=== PATIENT | female | born 1955 | race Caucasian/White ===

== ENCOUNTER → 2021-02-27 13:17 | Outpatient (CLI) | payer OTHER, SELFPAY ==
--- NOTE | 2021-02-27 13:22 | CT_ITS ---
STUDY: CT ABDOMEN AND PELVIS WITH AND WITHOUT CONTRAST REASON FOR EXAM: Female, 65 years old. UTI. Hematuria. RADIATION DOSAGE (If Supplied By Facility): CTDIvol = ( 9.637 ) mGy, DLP = ( 1436.14 ) mGycm TECHNIQUE: Transaxial images were obtained from the dome of the diaphragm to the symphysis pubis without oral contrast. IV 100mL Isovue-300 was administered. Sagittal and coronal images were reconstructed. Individualized dose optimization techniques were used for this CT. COMPARISON: None. FINDINGS: The visualized lung bases are unremarkable. The visualized portions of the heart are within normal limits. Normal liver. Normal gallbladder and extrahepatic biliary system. Normal spleen. Normal pancreas. Normal bilateral adrenal glands. Normal right kidney. Normal left kidney. There is a small hiatal hernia. Normal small intestine. There are multiple colonic diverticula consistent with diverticulosis. The appendix is visualized and appears normal. There is scattered atherosclerotic calcification of the abdominal aorta, without a demonstrated aneurysm. Normal inferior vena cava. Normal retroperitoneum. Normal urinary bladder. Normal abdominal wall. There are mild degenerative changes of the visualized lumbar spine. CT/CT Abd/Pelvis W/WO Contrast IMPRESSION: Scattered sigmoid diverticula. Electronically Signed: Darwin Downing MD at 15:38 EDT , Service support ,
== END ==
PROVIDERS: PCP Physician Assistant; Referring Provider Urology; Visit Provider Urology
DX: R31.0 Gross hematuria (principal); N39.0 Urinary tract infection, site not specified
CPT/HCPCS: 74178; Q9967

== ENCOUNTER → 2021-03-05 15:37 | Outpatient (CLI) | payer OTHER, SELFPAY ==
--- NOTE | 2021-03-05 | CYSPIN_PTH ---
PATIENT: LELE TORRE LOC: [facility] U#:[id number] AGE/SX: 69/F ROOM: RE03/05/[address]: Dr. Tonya Rios MD : 1955 BED: DIS: SPEC #: [id number] RECD: 03/06/21 08:14 STATUS: JACOB QUYNH #: [id number] OMARI: 03/05/21 00:[address]: Tonya Rios DEPT: CYTOLOGY RECD BY: Rory Fuller ENTERED: 03/06/21 08:15 SP TYPE: CYSPIN FL OTHR DR: VARGAS Shine Tissues: Urine Procedures: Pap Stain (control) Special Stain Group II Cytospin Fluid HEADER OPERATION: Not noted PRE-OP DIAGNOSIS: Gross hematuria TISSUE SUBMITTED: Urine for cytology DIAGNOSIS CYTOLOGY Urine for cytology (cytospin): Negative for malignant cells. AM:robert 03/07/2021 CYTOLOGY STUDY Slides are reviewed. CYTOLOGY GROSS Received is 20 ml of light yellow cloudy fluid labeled with the patient's name and and designated per the requisition as urine. Submitted for cytology preparation. / robert 03/06/2021 TC:5 CPT: 80409
[2021-03-05 16:31] LABS: Cytology, Body Fluid / CSF SEE PATHOLOGY REPORT
== END ==
PROVIDERS: PCP Physician Assistant; Referring Provider Urology; Visit Provider Urology
DX: R31.0 Gross hematuria (principal)
CPT/HCPCS: 88108; 88313

== ENCOUNTER 2021-04-29 06:12 | Day surgery (SDC) | payer OTHER, SELFPAY ==
[2021-04-29 06:40] VITALS: BP 153/72; PULSE 89; RESP 16; TEMP 36.3; O2SAT 100; BMI 22.6
[2021-04-29] MEDS: Lactated Ringers 1,000 ML 100 ML IV (06:53)
[2021-04-29] MEDS: Cefazolin 2 GM in 0.9% Normal Saline 100 ML IV (07:30)
--- NOTE | 2021-04-29 07:35 | PCM.OPRPT ---
Problems Associated Problem List Diagnoses (1) Hematuria, gross: (2) Urinary tract infection: (3) Other urethral stricture, female: Report of Operation Date of Procedure: 04/29/21 Pre-Operative Diagnosis: Gross hematuria, urinary tract infections, urethral stricture Post-Operative Diagnosis: Same Surgery/Procedure Performed:: Urethral dilation, cystoscopy Surgeon: Tonya Rios Type of Anesthesia: General Description of Procedure: The patient is a 65-year-old female with recurrent urinary tract infections and hematuria. An attempt was made at cystoscopy in the office setting and the urethra was too small to accommodate the cystoscope. The decision was made to proceed with urethral dilation and cystoscopy under anesthesia. Informed consent was obtained. The patient was taken to the operating room and placed on the operating room table. Anesthesia monitored the head, neck, airway, IV access and vital signs throughout the case. Once anesthesia was appropriate ministered the patient was placed into dorsal lithotomy position and was prepped and draped in usual sterile fashion. The urethra was then dilated starting with [address] up to 26 [place] with some cracking of the urethral mucosa. There is a slight angle to the urethra indicating a mild prolapse of the bladder neck. At this time the cystoscope easily passed through the urethra into the urinary bladder under direct visualization. the bladder mucosa was visualized in its entirety and found to be mildly trabeculated with no evidence of mass, ulceration, area of erythema or foreign body. The ureteral orifices were found to be in the correct anatomic position along the area of the trigone. At this time the bladder was emptied and the case was terminated. The patient tolerated the procedure well and was awakened and taken to the recovery room in good condition. There were no complications during this procedure. Grafts/Implants Used: none Complications none Admit VTE Documentation VTE Present on Admission: Yes VTE Mechan Device Prophylaxis: SCD's VTE Pharm Prophylaxis ordered?: No Reason prophylaxis not ordered:: Treatment Not Indicated
--- NOTE | 2021-04-29 07:38 | PCM.DC ---
Discharge Instructions Diet Discharge Diet: No restrictions Activity Discharge Activity: Return to Normal Activity May resume sexual activity in: 1-2 weeks Dressing / Incision Call your doctor if your incision/area has: Continuous Slow Oozing, Sudden Increased Bleeding and Foul Smelling Discharge Call your doctor if you observe: Fever of 101 or Higher, Inability to urinate, Inability to have a bowel movement and Uncontrolled pain Follow Up Care Please Follow Up With: Tonya Rios MD When: 1-2 weeks in the office Test Results: Test results from this visit will be discussed in further detail at your follow-up appointment, if applicable. Discharge Plan Admission Attending Provider: Tonya Rios Primary Care Provider: Anabel Olsen Discharge Orders/Prescriptions Prescriptions: New oxycodone-acetaminophen [Percocet] 5-325 mg tablet 1 tab PO Q8H PRN (Reason: pain) 3 Days Qty: 6 RF: 0 phenazopyridine [Pyridium] 200 MG tablet 200 mg PO TID PRN PRN (Reason: Bladder Spasms) 7 Days Qty: 30 RF: 0 Continued vitamin B complex Tablet Extended Release 1 tab PO DAILY RF: 0 sumatriptan succinate 100 mg Tablet 100 mg PO Q2H PRN (Reason: migraines) RF: 0 ascorbic acid (vitamin C) 1,000 mg Tablet Extended Release 1,000 mg PO DAILY RF: 0 calcium-mag oxide-vitamin D3 250-125-200 mg-mg-unit Capsule 1 cap PO DAILY RF: 0 omega-3 fatty acids 500 mg Capsule 500 mg PO DAILY RF: 0 Probiotic 100 billion cell Capsule 1 cap PO DAILY RF: 0 D Renée 1 tab PO/SL DAILY RF: 0 cephalexin 250 mg capsule 250 mg PO QHS Qty: 0 RF: 0 Referrals / Follow Up: Anabel Olsen PA [Primary Care Provider] - Disposition Disposition (needs filled in before D/C Order can be placed): Home, Self Care
[2021-04-29 08:01] VITALS: BP 105/49; BP 153/72; PULSE 78; RESP 16; TEMP 36; O2SAT 98
[2021-04-29 08:15] VITALS: BP 124/70; BP 153/72; PULSE 75; RESP 16; O2SAT 98
[2021-04-29 08:22] VITALS: BP 133/67; BP 153/72; PULSE 73; RESP 16; TEMP 36; O2SAT 100
[2021-04-29 09:18] VITALS: BP 142/69; BP 153/72; PULSE 80; RESP 16; TEMP 36.6; O2SAT 99
== END 2021-04-29 09:20 | disposition home or self-care (01) ==
LOC: SDC 06:13 → AC 06:14
PROVIDERS: PCP Physician Assistant; Visit Provider Urology
PROC: 0T7D8ZZ Dilation of Urethra, Via Natural or Artificial Opening Endoscopic (ICD-10-PCS; CPT 52281; principal; 2021-04-29 07:20)
DX: R31.0 Gross hematuria (principal); N39.0 Urinary tract infection, site not specified; N35.92 Unspecified urethral stricture, female; R35.1 Nocturia; N39.3 Stress incontinence (female) (male); R39.15 Urgency of urination; R35.0 Frequency of micturition; N95.2 Postmenopausal atrophic vaginitis
CPT/HCPCS: 52281; J7120; J2405